=== PATIENT | female | born 2000 | race Caucasian/White ===

== ENCOUNTER → 2021-07-16 | Outpatient (CLI) | payer OTHER ==
--- NOTE | 2021-07-16 14:53 | US ---
EXAMINATION TYPE: Ultrasound OB <= 14 weeks transvaginal DATE OF EXAM: 07/16/2021 2:33 PM COMPARISON: NONE CLINICAL HISTORY: 21-year-old female O26.851 SPOTTING COMPLICATING PREG. Bleeding and cramping x 2 da ys EXAM PERFORMED: Transvaginal (TV) and Transabdominal (TA) FINDINGS: EXAM MEASUREMENTS: GESTATIONAL AGE / DATING Physician Established: Not yet established Dates by LMP: (8 weeks/0 days) EDC: 02/25/2022 Dates by First Scan: No previous this is first scan Dates by Current Scan for: No pole or yolk sac seen MATERNAL ANATOMY Uterus: 8.2 x 4.9 x 5.6cm, retroverted Right Ovary: 2.3 x 1.8 x 2.5cm Left Ovary: 2.4 x 1.6 x 1.6cm Post CDS / Adnexa: free fluid Presence of free fluid: yes Presence of corpus luteal cyst: right ovary: 1.4 x 1.1 x 1.6cm Presence of subchorionic bleed: no GESTATION / SURVEY MSD: 0.8cm , slightly irregularly shaped. IUP: No pole or yolk sac seen Date of LMP: 05/21/2021 IMPRESSION: Cystic locule centered within the uterus measuring 8 mm. No yolk sac or pole seen. Findings may represent a normal intrauterine gestational sac. As the appearance is slightly irregular, pseudogest ational sac of a nonvisualized ectopic and failed are also differential considera tions at this time. Recommend serial beta-hCG and ultrasound follow-up to ensure the appearance of a normal pole with cardiac activity.
== END | disposition home or self-care (01) ==
LOC: RADUSWWP 14:01
PROVIDERS: ATTEND Obstetrics & Gynecology
DX: O26.851 Spotting complicating pregnancy, first trimester (principal); Z3A.08 8 weeks gestation of pregnancy
CPT/HCPCS: 76801; 76817

== ENCOUNTER 2022-02-25 18:53 | Emergency (ER) | payer OTHER ==
[2022-02-25] MEDS ORDERED: SODIUM CHLORIDE 0.9% 1,000 ML IV SCH (19:30)
[2022-02-25] MEDS: SODIUM CHLORIDE 0.9% 500 ML 500 ML IV SCH ×2 (19:46→20:57)
[2022-02-25] MEDS ORDERED: ACETAMINOPHEN TAB 325 MG TAB PO STA (19:55)
[2022-02-25] MEDS ORDERED: SODIUM CHLORIDE 0.9% 500 ML 500 ML IV STA (19:56)
--- NOTE | 2022-02-25 20:03 | ED ---
General Adult HPI - General Chief complaint: Shortness of Breath Stated complaint: SOB, Tingling Time Seen by Provider: 02/25/22 19:04 Source: patient Mode of arrival: ambulatory Limitations: no limitations - History of Present Illness Initial comments: This patient is 21-year-old woman here to have evaluation for feeling flushed and having some tachycardia. The patient states she does have history of Graves' disease and is taking PTU. Patient states the last time that she felt like this she had evaluation and was told that she was septic and therefore she presents to ensure that she is not septic again. The patient has not noted any symptoms of infection preceding the other symptoms. No congestion, sinus pressure, sore throat, cough. No abdominal pain, nausea or vomiting. No change in urination or bowel movements. No fevers, chills or rash. -: hour(s) Severity scale (1-10): 0 Consistency: now resolved Improves with: none Worsens with: none Associated Symptoms: denies other symptoms Treatments Prior to Arrival: none - Related Data Home Medications Medication Instructions Recorded Confirmed propylthiouraciL [Propylthiouracil] 100 mg PO TID 02/25/22 02/25/22 Allergies Allergy/AdvReac Type Severity Reaction Status Date / Time diazepam [From Valium] Allergy Unknown Verified 02/25/22 22:37 ketorolac [From Toradol] Allergy Anaphylaxis Verified 02/25/22 22:37 Review of Systems ROS Statement: Those systems with pertinent positive or pertinent negative responses have been documented in the HPI. ROS Other: All systems not noted in ROS Statement are negative. Constitutional: Denies: fever, chills, weakness Respiratory: Denies: cough, dyspnea Cardiovascular: Reports: palpitations. Denies: chest pain, orthopnea, edema, syncope Gastrointestinal: Denies: abdominal pain, vomiting, diarrhea Genitourinary: Denies: dysuria, hematuria, discharge Musculoskeletal: Denies: back pain Skin: Denies: rash Neurological: Denies: headache, weakness Past Medical History Past Medical History: Thyroid Disorder Additional Past Medical History / Comment(s): Graves disease History of Any Multi-Drug Resistant Organisms: None Reported Past Surgical History: No Surgical Hx Reported Past Psychological History: Anxiety, Bipolar, Depression Smoking Status: Current some day smoker Past Alcohol Use History: Occasional Past Drug Use History: Marijuana General Exam Limitations: no limitations General appearance: alert, in no apparent distress Head exam: Present: atraumatic, normocephalic Eye exam: Present: normal appearance. Absent: scleral icterus, conjunctival injection ENT exam: Present: normal oropharynx Neck exam: Present: normal inspection, full ROM. Absent: meningismus Respiratory exam: Present: normal lung sounds bilaterally. Absent: respiratory distress, wheezes, rales, rhonchi, stridor Cardiovascular Exam: Present: normal rhythm, tachycardia, normal heart sounds. Absent: systolic murmur, diastolic murmur, rubs, gallop GI/Abdominal exam: Present: soft. Absent: distended, tenderness, guarding, rebound, rigid, mass Extremities exam: Present: normal inspection, normal capillary refill. Absent: pedal edema, calf tenderness Back exam: Present: normal inspection. Absent: CVA tenderness (R), CVA tende rness (L) Neurological exam: Present: alert Skin exam: Present: warm, dry, intact, normal color. Absent: rash Course Vital Signs 02/25/22 02/25/22 02/25/22 18:57 19:48 19:50 Temperature 98.0 F 101.7 F H Pulse Rate 123 H 102 H Respiratory 24 20 Rate Blood Pressure 125/53 108/64 O2 Sat by Pulse 98 98 Oximetry 02/25/22 22:32 Temperature 98.7 F Pulse Rate 103 H Respiratory 16 Rate Blood Pressure 103/66 O2 Sat by Pulse 97 Oximetry EKG Findings - EKG Results: EKG: interpreted by ERMD, sinus rhythm, normal axis, normal ST/T EKG shows: tachycardia (Rate 110 bpm) - Blocks, [place], Hypertrophy, ST Abn: AV and intraventricular conduction: right bundle branch block (fixed/intermittent, complete/incomplete) (Incomplete) Medical Decision Making - Medical Decision Making Patient is 21-year-old woman with workup is unremarkable for her hyperthyroidism. The patient is to follow-up with endocrinology. She states she is feeling much better now most of the symptoms have passed. Discussed appropriate further care and follow-up as well as return parameters. - Lab Data Result diagrams: 02/25/22 19:40 02/25/22 19:40 Lab Results 02/25/22 02/25/22 02/25/22 Range/Units 19:40 19:40 19:40 WBC 5.1 (3.8-10.6) k/uL RBC 4.83 (3.80-5.40) m/uL Hgb 14.8 (11.4-16.0) gm/dL Hct 41.3 (34.0-46.0) % MCV 85.3 (80.0-100.0) fL MCH 30.7 (25.0-35.0) pg MCHC 36.0 (31.0-37.0) g/dL RDW 12.9 (11.5-15.5) % Plt Count 216 (150-450) k/uL MPV 7.7 Neutrophils % 79 % Lymphocytes % 16 % Monocytes % 3 % Eosinophils % 2 % Basophils % 0 % Neutrophils # 4.0 (1.3-7.7) k/uL Lymphocytes # 0.8 L (1.0-4.8) k/uL Monocytes # 0.2 (0-1.0) k/uL Eosinophils # 0.1 (0-0.7) k/uL Basophils # 0.0 (0-0.2) k/uL PT 12.2 H (9.0-12.0) sec INR 1.1 (<1.2) APTT 23.9 (22.0-30.0) sec Sodium 138 (137-145) mmol/L Potassium 3.9 (3.5-5.1) mmol/L Chloride 105 (98-107) mmol/L Carbon Dioxide 24 (22-30) mmol/L Anion Gap 9 mmol/L BUN 12 (7-17) mg/dL Creatinine 0.63 (0.52-1.04) mg/dL Est GFR (CKD-EPI)AfAm >90 (>60 ml/min/1.73 sqM) Est GFR (CKD-EPI)NonAf >90 (>60 ml/min/1.73 sqM) Glucose 103 H (74-99) mg/dL Plasma Lactic Acid Aurelio (0.7-2.0) mmol/L Calcium 8.9 (8.4-10.2) mg/dL Total Bilirubin 0.6 (0.2-1.3) mg/dL AST 34 (14-36) U/L ALT 27 (4-34) U/L Alkaline Phosphatase 94 (38-126) U/L Total Protein 7.3 (6.3-8.2) g/dL Albumin 4.4 (3.5-5.0) g/dL TSH <0.015 L (0.465-4.680) mIU/L Free T4 3.05 H (0.78-2.19) ng/dL Urine Color Urine Appearance (Clear) Urine pH (5.0-8.0) Ur Specific [place] (1.001-1.035) Urine Protein (Negative) Urine Glucose (UA) (Negative) Urine Ketones (Negative) Urine Blood (Negative) Urine Nitrite (Negative) Urine Bilirubin (Negative) Urine Urobilinogen (<2.0) mg/dL Ur Leukocyte Esterase (Negative) Coronavirus (PCR) (Not Detectd) 02/25/22 02/25/22 02/25/22 Range/Units 19:40 21:02 21:02 WBC (3.8-10.6) k/uL RBC (3.80-5.40) m/uL Hgb (11.4-16.0) gm/dL Hct (34.0-46.0) % MCV (80.0-100.0) fL MCH (25.0-35.0) pg MCHC (31.0-37.0) g/dL RDW (11.5-15.5) % Plt Count (150-450) k/uL MPV Neutrophils % % Lymphocytes % % Monocytes % % Eosinophils % % Basophils % % Neutrophils # (1.3-7.7) k/uL Lymphocytes # (1.0-4.8) k/uL Monocytes # (0-1.0) k/uL Eosinophils # (0-0.7) k/uL Basophils # (0-0.2) k/uL PT (9.0-12.0) sec INR (<1.2) APTT (22.0-30.0) sec Sodium (137-145) mmol/L Potassium (3.5-5.1) mmol/L Chloride (98-107) mmol/L Carbon Dioxide (22-30) mmol/L Anion Gap mmol/L BUN (7-17) mg/dL Creatinine (0.52-1.04) mg/dL Est GFR (CKD-EPI)AfAm (>60 ml/min/1.73 sqM) Est GFR (CKD-EPI)NonAf (>60 ml/min/1.73 sqM) Glucose (74-99) mg/dL Plasma Lactic Acid Aurelio 1.0 (0.7-2.0) mmol/L Calcium (8.4-10.2) mg/dL Total Bilirubin (0.2-1.3) mg/dL AST (14-36) U/L ALT (4-34) U/L Alkaline Phosphatase (38-126) U/L Total Protein (6.3-8.2) g/dL Albumin (3.5-5.0) g/dL TSH (0.465-4.680) mIU/L Free T4 (0.78-2.19) ng/dL Urine Color Yellow Urine Appearance Clear (Clear) Urine pH 6.0 (5.0-8.0) Ur Specific [place] 1.018 (1.001-1.035) Urine Protein Negative (Negative) Urine Glucose (UA) Negative (Negative) Urine Ketones Trace H (Negative) Urine Blood Negative (Negative) Urine Nitrite Negative (Negative) Urine Bilirubin Negative (Negative) Urine Urobilinogen <2.0 (<2.0) mg/dL Ur Leukocyte Esterase Negative (Negative) Coronavirus (PCR) Not Detected (Not Detectd) Disposition Clinical Impression: Hyperthyroidism Disposition: HOME SELF-CARE Condition: Good Instructions (If sedation given, give patient instructions): Hyperthyroidism (ED), Graves Disease (ED) Is patient prescribed a controlled substance at d/c from ED?: No Referrals: Evelina Howell DO [REFERRING] - 1-2 days Renee Irizarry MD [STAFF PHYSICIAN] - 1-2 days
[2022-02-25 20:11] LABS: ALT 27 U/L (4-34); AST 34 U/L (14-36); African American GFR (CKD) >90 (>60 ml/min/1.73 sqM); Albumin 4.4 g/dL (3.5-5.0); Alkaline Phosphatase 94 U/L (38-126); Anion Gap 9 mmol/L; Blood Urea Nitrogen 12 mg/dL (7-17); Calcium 8.9 mg/dL (8.4-10.2); Carbon Dioxide 24 mmol/L (22-30); Chloride 105 mmol/L (98-107); Glucose 103 mg/dL (74-99); Non-African American GFR(CKD) >90 (>60 ml/min/1.73 sqM); Potassium 3.9 mmol/L (3.5-5.1); Sodium 138 mmol/L (137-145); Total Bilirubin 0.6 mg/dL (0.2-1.3); Total Protein 7.3 g/dL (6.3-8.2)
[2022-02-25 20:25] LABS: Basophils % (A) 0 %; Eosinophils # (A) 0.1 k/uL (0-0.7); Eosinophils % (A) 2 %; HCT 41.3 % (34.0-46.0); HGB 14.8 gm/dL (11.4-16.0); Lymphocytes # (A) 0.8 k/uL (1.0-4.8); Lymphocytes % (A) 16 %; MCH 30.7 pg (25.0-35.0); MCV 85.3 fL (80.0-100.0); Mean Platelet Volume 7.7; Monocytes # (A) 0.2 k/uL (0-1.0); Monocytes % (A) 3 %; Neutrophils % (A) 79 %; Platelet Count 216 k/uL (150-450); RBC 4.83 m/uL (3.80-5.40); RDW 12.9 % (11.5-15.5); WBC 5.1 k/uL (3.8-10.6)
[2022-02-25 20:35] LABS: INR 1.1 (<1.2); Partial Thromboplastin Time 23.9 sec (22.0-30.0); Prothrombin Time 12.2 sec (9.0-12.0)
[2022-02-25 21:16] LABS: T4, Free (Free Thyroxine) 3.05 ng/dL (0.78-2.19)
[2022-02-25 21:26] LABS: Appearance,Urine Clear (Clear); Bilirubin,Urine Negative (Negative); Blood,Urine Negative (Negative); Color,Urine Yellow; Glucose,Urine (UA) Negative (Negative); Ketones,Urine Trace (Negative); Leukocyte Esterase,Urine Negative (Negative); Nitrite,Urine Negative (Negative); Protein,Urine Negative (Negative); Specific Gravity,Urine 1.018 (1.001-1.035); Urobilinogen,Urine <2.0 mg/dL (<2.0)
--- NOTE | 2022-02-25 21:29 | XR ---
EXAMINATION TYPE: XR chest 2V DATE OF EXAM: 02/25/2022 COMPARISON: NONE HISTORY: Fever TECHNIQUE: 2 views FINDINGS: Heart and mediastinum are normal. Lungs are clear. Diaphragm is normal. Bony thorax appears normal. IMPRESSION: Normal chest.
[2022-02-25 22:34] VITALS: BP 103/66; PULSE 103; RESP 16; TEMP 98.7
== END 2022-02-25 23:21 | disposition home or self-care (01) ==
LOC: EC 18:53
DX: E05.90 Thyrotoxicosis, unspecified without thyrotoxic crisis or storm (principal); F41.9 Anxiety disorder, unspecified; F31.9 Bipolar disorder, unspecified; F17.200 Nicotine dependence, unspecified, uncomplicated; F12.90 Cannabis use, unspecified, uncomplicated; Z88.8 Allergy status to other drugs, medicaments and biological substances; Z88.6 Allergy status to analgesic agent; Z20.822 Contact with and (suspected) exposure to COVID-19
CPT/HCPCS: 36415; 93005; 84439; 80053; 84443; 83605; 85025; 85610; 85730; 81003; 87040; 87635; 71046; 99285; 96365; 96361 ×2; J0696

== ENCOUNTER 2022-02-26 22:09 | Observation (INO) | payer OTHER ==
[2022-02-26] MEDS ORDERED: methylPREDNISolone SOD SUCCI 125 MG/2 ML VIAL IV STA (22:38)
[2022-02-26] MEDS ORDERED: FAMOTIDINE 20 MG/2 ML VIAL IV STA (22:38)
[2022-02-26] MEDS ORDERED: SODIUM CHLORIDE 0.9% 1,000 ML IV STA (22:38)
[2022-02-26] MEDS ORDERED: diphenhydrAMINE 50 MG/ML 1 ML VIAL IVP STA (22:38)
--- NOTE | 2022-02-26 22:41 | ED ---
General Adult HPI - General Chief complaint: Arrhythmia/Palpitations Stated complaint: Rash,High heart rate Time Seen by Provider: 02/26/22 22:26 Source: patient Mode of arrival: ambulatory Limitations: no limitations - History of Present Illness Initial comments: Patient is a 21-year-old female presenting to the emergency room with complaints of sudden onset of tachycardia, rash to her chest along with slight swelling and lesion to her tongue that developed prior to coming into the emergency room after her first dose of PTU earlier today which she recently restarted at the recommendation of ER visit yesterday for her Graves' disease. She has had previous ALLERGIC reactions to Valium and Toradol; her ALLERGIC reaction to Toradol was similar to her current reaction with the exception of her tachycardia. Prior to her first dose of PTU today she had not been taking any medication for her hyperthyroidism in quite some time. She is complaining of palpitations and some anxiety causing some shortness of breath; she denies any typical chest pain abdominal pain, nausea or vomiting. She denies any fevers or chills. Besides her hyperthyroidism/Graves' disease along with bipolar depression endings and anxiety she has no other significant past medical history. - Related Data Previous Rx's Medication Instructions Recorded Propranolol [Inderal] 60 mg PO TID 30 Days #90 tab 03/01/22 methIMAzole [Tapazole] 5 mg PO TID 30 Days #90 tab 03/01/22 Allergies Allergy/AdvReac Type Severity Reaction Status Date / Time diazepam [From Valium] Allergy Unknown Verified 02/27/22 10:26 ketorolac [From Toradol] Allergy Anaphylaxis Verified 02/27/22 10:26 Review of Systems ROS Statement: Those systems with pertinent positive or pertinent negative responses have been documented in the HPI. ROS Other: All systems not noted in ROS Statement are negative. Past Medical History Past Medical History: Thyroid Disorder Additional Past Medical History / Comment(s): Graves disease History of Any Multi-Drug Resistant Organisms: None Reported Past Surgical History: No Surgical Hx Reported Past Psychological History: Anxiety, Bipolar, Depression Smoking Status: Current some day smoker Past Alcohol Use History: Occasional Past Drug Use History: Marijuana - Past Family History Father Family Medical History: Hypertension General Exam Limitations: no limitations General appearance: alert, in no apparent distress, anxious Head exam: Present: atraumatic, normocephalic, normal inspection Eye exam: Present: normal appearance, PERRL, EOMI. Absent: scleral icterus, conjunctival injection, periorbital swelling ENT exam: Present: mucous membranes moist, other (Slight anterior tongue swel ling with irritated lesion to right tip of tongue without vesicular formation. Airway patent.) Neck exam: Present: normal inspection. Absent: tenderness Respiratory exam: Present: normal lung sounds bilaterally. Absent: respiratory distress, wheezes, rales, rhonchi, stridor Cardiovascular Exam: Present: normal rhythm, tachycardia, normal heart sounds. Absent: systolic murmur, diastolic murmur, rubs, gallop, clicks GI/Abdominal exam: Present: soft, normal bowel sounds. Absent: distended, tend erness, guarding, rebound, rigid Extremities exam: Present: normal inspection. Absent: pedal edema, joint swelling Back exam: Present: normal inspection, full ROM Neurological exam: Present: alert, oriented X3, CN II-XII intact Psychiatric exam: Present: anxious Skin exam: Present: rash (Macular rash without papules noted to upper chest wall without spreading to the abdominal wall or neck), urticaria (To chest wall) Course Vital Signs 02/26/22 02/27/22 22:10 00:42 Temperature 98.3 F Pulse Rate 140 H 80 Respiratory 20 16 Rate Blood Pressure 147/91 114/67 O2 Sat by Pulse 97 98 Oximetry Medical Decision Making - Medical Decision Making Patient is 21-year-old female presenting to the emergency room with complaints of tongue swelling or rash to her face flushing tachycardia and chest tightness which all began approximately 1 hour after taking her first dose of PTU in quite some time. Previous to her dose of PTU that she took today she has not had any difficulties with the medication when she has taken it previously and has not previously had any ALLERGIC response to the medication. She does report that this response is similar to her previous ALLERGIC response to Toradol. Will start ALLERGIC reaction protocol with IV fluid bolus along with Benadryl, Pepcid and Solu-Medrol. Will monitor response of tachycardia after IV fluid bolus and treatment for ALLERGIC response. Hypermobility for both ALLERGIC response activity along with hyperthyroidism. Will defer repeat chest x-ray, will obtain EKG, CBC, CMP TSH with reflux along with cortisol level, Coags, troponin and magnesium. EKG shows sinus tachycardia. Continue tachycardia after IV fluid bolus Benadryl Pepcid and Solu-Medrol improved rash and tongue swelling. Will give IV propanolol. Laboratory studies reveal low WBC which was normal on yesterday's labs along with low neutrophils and lymphocytes. Coags show slightly elevated PT and INR. BMP shows mildly elevated liver enzymes slightly elevated glucose level TSH undetectable at less than 0.05 free T4 currently pending along with cortisol level pending. Troponin negative and magnesium normal. Calcium also normal. Concerned regarding recurrence of presentation to the emergency department along with changes in laboratory studies over the last 24 hours will plan for observation admission along with transition from PTU to methimazole. Recommendation of of her children he shouldn't stay discussed with patient she is agreeable to observation stay. Presentation, findings and plan discussed at length with forming yardage control operator physician Dr. Ott for [facility] physicians for observation admission. He is accepting of admission for observation stay. Will place admission orders and start on methimazole in a.m. with moderate hyperthyroid dosing of 15 mg twice a day. Case discussed at length with Dr. Cox. - Lab Data Result diagrams: 02/26/22 22:56 02/26/22 22:56 Lab Results 02/26/22 02/26/22 02/26/22 Range/Units 22:56 22:56 22:56 WBC 1.8 L (3.8-10.6) k/uL RBC 4.62 (3.80-5.40) m/uL Hgb 13.9 (11.4-16.0) gm/dL Hct 38.7 (34.0-46.0) % MCV 83.7 (80.0-100.0) fL MCH 30.1 (25.0-35.0) pg MCHC 35.9 (31.0-37.0) g/dL RDW 12.7 (11.5-15.5) % Plt Count 174 (150-450) k/uL MPV 7.8 Neutrophils % 40 % Lymphocytes % 39 % Monocytes % 7 % Eosinophils % 10 % Basophils % 0 % Neutrophils # 0.7 L (1.3-7.7) k/uL Lymphocytes # 0.7 L (1.0-4.8) k/uL Monocytes # 0.1 (0-1.0) k/uL Eosinophils # 0.2 (0-0.7) k/uL Basophils # 0.0 (0-0.2) k/uL PT 12.3 H (9.0-12.0) sec INR 1.2 H (<1.2) APTT 28.1 (22.0-30.0) sec Sodium 138 (137-145) mmol/L Potassium 3.5 (3.5-5.1) mmol/L Chloride 109 H (98-107) mmol/L Carbon Dioxide 21 L (22-30) mmol/L Anion Gap 8 mmol/L BUN 8 (7-17) mg/dL Creatinine 0.50 L (0.52-1.04) mg/dL Est GFR (CKD-EPI)AfAm >90 (>60 ml/min/1.73 sqM) Est GFR (CKD-EPI)NonAf >90 (>60 ml/min/1.73 sqM) Glucose 141 H (74-99) mg/dL Calcium 9.0 (8.4-10.2) mg/dL Magnesium 1.9 (1.6-2.3) mg/dL Total Bilirubin 0.8 (0.2-1.3) mg/dL AST 48 H (14-36) U/L ALT 40 H (4-34) U/L Alkaline Phosphatase 95 (38-126) U/L Troponin I (0.000-0.034) ng/mL Total Protein 6.9 (6.3-8.2) g/dL Albumin 3.9 (3.5-5.0) g/dL TSH <0.015 L (0.465-4.680) mIU/L Cortisol 26 ug/dL 02/26/22 Range/Units 22:56 WBC (3.8-10.6) k/uL RBC (3.80-5.40) m/uL Hgb (11.4-16.0) gm/dL Hct (34.0-46.0) % MCV (80.0-100.0) fL MCH (25.0-35.0) pg MCHC (31.0-37.0) g/dL RDW (11.5-15.5) % Plt Count (150-450) k/uL MPV Neutrophils % % Lymphocytes % % Monocytes % % Eosinophils % % Basophils % % Neutrophils # (1.3-7.7) k/uL Lymphocytes # (1.0-4.8) k/uL Monocytes # (0-1.0) k/uL Eosinophils # (0-0.7) k/uL Basophils # (0-0.2) k/uL PT (9.0-12.0) sec INR (<1.2) APTT (22.0-30.0) sec Sodium (137-145) mmol/L Potassium (3.5-5.1) mmol/L Chloride (98-107) mmol/L Carbon Dioxide (22-30) mmol/L Anion Gap mmol/L BUN (7-17) mg/dL Creatinine (0.52-1.04) mg/dL Est GFR (CKD-EPI)AfAm (>60 ml/min/1.73 sqM) Est GFR (CKD-EPI)NonAf (>60 ml/min/1.73 sqM) Glucose (74-99) mg/dL Calcium (8.4-10.2) mg/dL Magnesium (1.6-2.3) mg/dL Total Bilirubin (0.2-1.3) mg/dL AST (14-36) U/L ALT (4-34) U/L Alkaline Phosphatase (38-126) U/L Troponin I <0.012 (0.000-0.034) ng/mL Total Protein (6.3-8.2) g/dL Albumin (3.5-5.0) g/dL TSH (0.465-4.680) mIU/L Cortisol ug/dL - EKG Data EKG Comments: EKG completed at 2221 interpreted by me shows sinus tachycardia with incomplete right bundle branch block ventricular rate 132 bpm, WV interval 140 ms, QRS duration 100 ms, QT/QTC 3 460 ms, PRT axes 62, 88, 50 Disposition Clinical Impression: Hyperthyroidism, Tachycardia Disposition: ADMITTED IP TO THIS HOSP Condition: Stable Is patient prescribed a controlled substance at d/c from ED?: No Time of Disposition: 23:59
[2022-02-26] MEDS ORDERED: ONDANSETRON 4 MG/2 ML VIAL IVP STA (23:22)
[2022-02-26 23:32] LABS: Basophils % (A) 0 %; Eosinophils # (A) 0.2 k/uL (0-0.7); Eosinophils % (A) 10 %; HCT 38.7 % (34.0-46.0); HGB 13.9 gm/dL (11.4-16.0); Lymphocytes # (A) 0.7 k/uL (1.0-4.8); Lymphocytes % (A) 39 %; MCH 30.1 pg (25.0-35.0); MCHC 35.9 g/dL (31.0-37.0); MCV 83.7 fL (80.0-100.0); Mean Platelet Volume 7.8; Monocytes # (A) 0.1 k/uL (0-1.0); Monocytes % (A) 7 %; Neutrophils # (A) 0.7 k/uL (1.3-7.7); Neutrophils % (A) 40 %; Platelet Count 174 k/uL (150-450); RBC 4.62 m/uL (3.80-5.40); RDW 12.7 % (11.5-15.5); WBC 1.8 k/uL (3.8-10.6)
[2022-02-26 23:44] LABS: INR 1.2 (<1.2); Partial Thromboplastin Time 28.1 sec (22.0-30.0); Prothrombin Time 12.3 sec (9.0-12.0)
[2022-02-26] MEDS ORDERED: PROPRANOLOL 1 MG/ML 1 ML VIAL IV STA (23:45)
[2022-02-27] MEDS ORDERED: ACETAMINOPHEN TAB 325 MG TAB PO PRN (00:25)
[2022-02-27] MEDS ORDERED: NALOXONE 0.4 MG/ML 1 ML VIAL IV PRN (00:25)
[2022-02-27] MEDS ORDERED: SODIUM CHLORIDE 0.9% 1,000 ML IV SCH (00:30)
[2022-02-27 01:00] LABS: ALT 40 U/L (4-34); AST 48 U/L (14-36); African American GFR (CKD) >90 (>60 ml/min/1.73 sqM); Albumin 3.9 g/dL (3.5-5.0); Alkaline Phosphatase 95 U/L (38-126); Anion Gap 8 mmol/L; Blood Urea Nitrogen 8 mg/dL (7-17); Carbon Dioxide 21 mmol/L (22-30); Chloride 109 mmol/L (98-107); Glucose 141 mg/dL (74-99); Magnesium 1.9 mg/dL (1.6-2.3); Non-African American GFR(CKD) >90 (>60 ml/min/1.73 sqM); Potassium 3.5 mmol/L (3.5-5.1); Sodium 138 mmol/L (137-145); Total Bilirubin 0.8 mg/dL (0.2-1.3); Total Protein 6.9 g/dL (6.3-8.2)
[2022-02-27 01:27] LABS: T4, Free (Free Thyroxine) 2.73 ng/dL (0.78-2.19)
--- NOTE | 2022-02-27 02:50 | P.HPIM ---
History of Present Illness H&P Date: 02/27/22 The patient is a 21-year-old female with a PMH of Graves' disease with poor follow-up who presents to the emergency room with complaints of palpitations. Patient states that she was diagnosed with Graves' disease several years ago and was previously on propylthiouracil for 2 years and was lost to follow for the last one year due to personal reasons. She had not been taking any thyroid blockers. She was ultimately seen at her PCP several days ago who prescribed her propylthiouracil, the first dose of which she took on 02/25 morning. Shortly after taking the first dose, the patient developed tachycardia and flushing and was subsequently seen at the emergency room. The patient was advised to continue taking her propylthiouracil by the ED provider and was also started on methimazole and was discharged home. The patient states that she has not yet filled the prescription of the methimazole and continued taking the PTU. States that after taking her dose this evening at around 7 PM, she developed sudden onset of chest tightness, shortness of breath with palpitations and flu shing. She also reports that soon after arrival at the emergency room, she also developed tongue swelling which resolved within a few minutes after she was given Benadryl. She reports feeling significantly better at the time of interview and stated that she feels back at her baseline. EKG in the emergency room revealed sinus tachycardia with incomplete right bundle branch block at 1 32 bpm. At time of interview however, the patient was resting comfortably with pulse 70 days on the monitor. Laboratory evaluation was remarkable for leukopenia of 1.8, AST 48, and ALT 40. Review of systems: Pertinent positives and negatives as discussed in HPI, a complete review of systems was performed and all other systems are negative. Physical examination: General: non toxic, no distress, appears at stated age, normal weight Derm: no unusual rashes/lesions, warm Head: atraumatic, normocephalic, symmetric Eyes: EOMI, no lid lag, anicteric sclera, pupils equal round reactive to light ENT: Nose and ears atraumatic Neck: No cervical lymphadenopathy, trachea midline, supple Mouth: no lip lesion, mucus membranes moist Cardiovascular: S1S2 reg, no murmur, positive dorsalis pedis pulse bilateral, no edema Lungs: CTA bilateral, no rhonchi, no rales, no accessory muscle use Abdominal: soft, nontender to palpation, no guarding Ext: muscle strength 5 out of 5 in all 4 extremities grossly, no gross muscle atrophy, no contractures, Neuro: CN II-XI grossly intact, no gross focal neuro deficits Psych: Alert, oriented, appropriate affect Assessment/plan Shortness of breath, palpitations and tongue swelling, suspect possible propylthiouracil ALLERGY with history of Graves' disease -Low suspisioun of thyroid storm at this time as patient's symptoms completely resolved without administration of any thionamides -Continue methimazole at this time -Patient will need close endocrine follow-up after discharge -Continue propranolol when necessary Leukopenia -Unclear etiology -Monitor for now DVT prophylaxis -Heparin subcu The patient is admitted with an anticipated less than 2 midnight stay for evaluation of graves disease CODE STATUS: Full Code Discussed with: Patient Anticipated discharge date: in am Anticipated discharge place: Home Past Medical History Past Medical History: Thyroid Disorder Additional Past Medical History / Comment(s): Graves disease History of Any Multi-Drug Resistant Organisms: None Reported Past Surgical History: No Surgical Hx Reported Past Psychological History: Anxiety, Bipolar, Depression Smoking Status: Current some day smoker Past Alcohol Use History: Occasional Past Drug Use History: Marijuana - Past Family History Father Family Medical History: Hypertension Medications and Allergies Home Medications Medication Instructions Recorded Confirmed Type propylthiouraciL [Propylthiouracil] 100 mg PO TID 02/25/22 02/25/22 History methIMAzole [Tapazole] 15 mg PO BID 7 Days #14 tablet 02/27/22 Rx Allergies Allergy/AdvReac Type Severity Reaction Status Date / Time diazepam [From Valium] Allergy Unknown Verified 02/26/22 22:13 ketorolac [From Toradol] Allergy Anaphylaxis Verified 02/26/22 22:13 Physical Exam Vitals: Vital Signs Temp Pulse Resp BP Pulse Ox 02/27/22 00:42 80 16 114/67 98 02/26/22 22:10 98.3 F 140 H 20 147/91 97 Intake and Output 02/26/22 02/26/22 02/27/22 14:59 22:59 06:59 Other: Weight 56.699 kg Results CBC & Chem 7: 02/26/22 22:56 02/26/22 22:56 Labs: Abnormal Lab Results - Last 24 Hours (Table) 02/26/22 02/26/22 02/26/22 Range/Units 22:56 22:56 22:56 WBC 1.8 L (3.8-10.6) k/uL Neutrophils # 0.7 L (1.3-7.7) k/uL Lymphocytes # 0.7 L (1.0-4.8) k/uL PT 12.3 H (9.0-12.0) sec INR 1.2 H (<1.2) Chloride 109 H (98-107) mmol/L Carbon Dioxide 21 L (22-30) mmol/L Creatinine 0.50 L (0.52-1.04) mg/dL Glucose 141 H (74-99) mg/dL AST 48 H (14-36) U/L ALT 40 H (4-34) U/L TSH <0.015 L (0.465-4.680) mIU/L Free T4 (0.78-2.19) ng/dL Free T3 pg/mL (2.8-5.3) pg/ml 02/27/22 Range/Units 00:41 WBC (3.8-10.6) k/uL Neutrophils # (1.3-7.7) k/uL Lymphocytes # (1.0-4.8) k/uL PT (9.0-12.0) sec INR (<1.2) Chloride (98-107) mmol/L Carbon Dioxide (22-30) mmol/L Creatinine (0.52-1.04) mg/dL Glucose (74-99) mg/dL AST (14-36) U/L ALT (4-34) U/L TSH (0.465-4.680) mIU/L Free T4 2.73 H (0.78-2.19) ng/dL Free T3 pg/mL 6.2 H (2.8-5.3) pg/ml
[2022-02-27] MEDS ORDERED: HEPARIN SODIUM,PORCINE/PF 5,000 UNIT/0.5 ML SYRINGE SQ SCH (08:00)
[2022-02-27 08:41] VITALS: BP 109/64; PULSE 65; RESP 16; TEMP 97.8
[2022-02-27] MEDS ORDERED: methIMAzole 5 MG TAB PO SCH (09:00)
--- NOTE | 2022-02-27 13:59 | P.DS ---
Providers Date of admission: 02/27/22 00:26 Expected date of discharge: 02/27/22 Attending physician: Tammy Ott MD Primary care physician: Evelina Howell [facility] Course: Discharge Diagnosis: Graves' disease Hyperthyroidism Suspected ALLERGIC reaction to PTU Leukopenia Hospital Course: 21-year-old female with a PMH of Graves' disease with poor follow-up who presents to the emergency room with complaints of palpitations. Patient states that she was diagnosed with Graves' disease several years ago and was previously on propylthiouracil for 2 years and was lost to follow for the last one year due to personal reasons. She had not been taking any thyroid blockers. She was ultimately seen at her PCP several days ago who prescribed her propylthiouracil, the first dose of which she took on 02/25 morning. Shortly after taking the first dose, the patient developed tachycardia and flushing and was subsequently seen at the emergency room. The patient was advised to continue taking her propylthiouracil by the ED provider and was also started on methimazole and was discharged home. The patient states that she has not yet filled the prescription of the methimazole and continued taking the PTU. States that after taking her dose this evening at around 7 PM, she developed sudden onset of chest tightness, shortness of breath with palpitations and flushing. She also reports that soon after arrival at the emergency room, she also developed tongue swelling which resolved within a few minutes after she was given Benadryl. EKG in the emergency room revealed sinus tachycardia with incomplete right bundle branch block at 1 32 bpm. Laboratory evaluation was remarkable for leukopenia of 1.8, AST 48, and ALT 40. Vital signs now Stable. Patient denies any further symptoms at the time of discharge. Patient to continue taking her methimazole at home. She has further follow-up with PCP, possible endocrinology. She may need radioablation or thyroid surgery in the future. Patient seen and examined at bedside. Vital signs reviewed and stable. General: nontoxic, no distress, appears at stated age Derm: warm, dry Head: atraumatic, normocephalic, symmetric Eyes: EOMI, no lid lag, anicteric sclera Mouth: no lip lesion, mucus membranes moist Cardiovascular: S1S2 reg, no murmur Lungs: CTA bilateral, no rhonchi, no rales , no accessory muscle use Abdominal: soft, nontender to palpation, no guarding, no appreciable organomegaly Ext: no gross muscle atrophy, no edema, no contractures Neuro: CN II-XI grossly intact, no focal neuro deficits Psych: Alert, oriented, appropriate affect A total of 38 minutes of time were spent preparing this complex discharge summary. Patient was discharged on 02/27/22 at 10:35. Patient Condition at Discharge: Stable Plan - Discharge Summary New Discharge Prescriptions: New methIMAzole [Tapazole] 15 mg PO BID 7 Days #14 tablet Discharge Medication List methIMAzole [Tapazole] 15 mg PO BID 7 Days #14 tablet 02/27/22 [Rx] Follow up Appointment(s)/Referral(s): Evelina Howell DO [Primary Care Provider] - 1-2 days Patient Instructions/Handouts: Heart Palpitations (ED), Hyperthyroidism (ED) Activity/Diet/Wound Care/Special Instructions: Please take your methimazole as prescribed and stop PTU at this time as there is concern for ALLERGIC reaction. Please follow-up with your primary care provider and if established your parking line painter. Please return to the Emergency Departme nt if symptoms worsen or any other concerns. If medications do not work for you, you may need radioablation or surgery in the future. Discharge Disposition: HOME SELF-CARE
== END 2022-02-27 11:00 | disposition home or self-care (01) ==
LOC: EC 22:09 → 6NMEDSUR 02-27 00:26
PROVIDERS: ADMIT Internal Medicine; ATTEND Internal Medicine
DX: E05.00 Thyrotoxicosis with diffuse goiter without thyrotoxic crisis or storm (principal); D72.819 Decreased white blood cell count, unspecified; I45.10 Unspecified right bundle-branch block; R79.1 Abnormal coagulation profile; R74.8 Abnormal levels of other serum enzymes; F31.9 Bipolar disorder, unspecified; F41.9 Anxiety disorder, unspecified; F17.200 Nicotine dependence, unspecified, uncomplicated; Z79.899 Other long term (current) drug therapy; Z88.8 Allergy status to other drugs, medicaments and biological substances; Z82.49 Family history of ischemic heart disease and other diseases of the circulatory system
CPT/HCPCS: 96374; 96375 ×2; 99285; 36415; 93005 ×2; 84439; 84481; 80053; 84443; 82533; 83735; 84484; 85025; 85610; 85730; G0378; J1200; J1800; J2930; J2405

== ENCOUNTER 2022-02-27 13:21 | Observation (INO) | payer OTHER ==
[2022-02-27] MEDS ORDERED: SODIUM CHLORIDE 0.9% 1,000 ML IV STA (13:37)
[2022-02-27] MEDS ORDERED: ONDANSETRON 4 MG/2 ML VIAL IVP STA (13:37)
[2022-02-27] MEDS ORDERED: MORPHINE SULFATE 2 MG/ML SYRINGE IVP STA ×2 (13:37→15:57)
--- NOTE | 2022-02-27 14:03 | ED ---
Recheck HPI - General Chief Complaint: Recheck/Abnormal Lab/Rx Stated Complaint: SOB Time Seen by Provider: 02/27/22 13:24 Source: patient, RN notes reviewed Mode of arrival: EMS Limitations: no limitations - History of Present Illness Initial Comments: This is a 21-year-old female with a past medical history of Graves disease who presents to the emergency department for nausea, vomiting, and hand cramping. She was discharged earlier today for problems with the hands related to Graves disease. She had not followed up for treatment of the Graves disease in many years, and was started on PTU on 02/25 when she saw her PCP. Shortly after taking it she became tachycardic with flushing. She had been instructed to begin methimazole and to take this with the PTU. After an additional dose of PTU, she acquired tongue swelling and chest tightness. There was concern that she may have been having an allergic reaction to the PTU, and she was instructed to discontinue this and take the methimazole on its own. States that since then she has felt very nauseous and has thrown up. Also reports lower abdominal pain and pressure. Her hands continue to feel very cramped, numb, and tingly. Also states that she is in significant pain from this. Denies any fevers, chills, sore throat, cough, dyspnea, chest pain, palpitations, diarrhea, back pain, or headaches. - Related Data Previous Rx's Medication Instructions Recorded methIMAzole [Tapazole] 15 mg PO BID 7 Days #14 tablet 02/27/22 Allergies Allergy/AdvReac Type Severity Reaction Status Date / Time diazepam [From Valium] Allergy Unknown Verified 02/27/22 10:26 ketorolac [From Toradol] Allergy Anaphylaxis Verified 02/27/22 10:26 Review of Systems ROS Statement: Those systems with pertinent positive or pertinent negative responses have been documented in the HPI. ROS Other: All systems not noted in ROS Statement are negative. Past Medical History Past Medical History: Thyroid Disorder Additional Past Medical History / Comment(s): Graves disease History of Any Multi-Drug Resistant Organisms: None Reported Past Surgical History: No Surgical Hx Reported Past Psychological History: Anxiety, Bipolar, Depression Smoking Status: Current some day smoker Past Alcohol Use History: Occasional Past Drug Use History: Marijuana - Past Family History Father Family Medical History: Hypertension General Exam Limitations: no limitations General appearance: alert, in no apparent distress Head exam: Present: atraumatic, normocephalic, normal inspection Respiratory exam: Present: normal lung sounds bilaterally. Absent: respiratory distress, wheezes, rales, rhonchi, stridor Cardiovascular Exam: Present: regular rate, normal rhythm, normal heart sounds. Absent: systolic murmur, diastolic murmur, rubs, gallop, clicks GI/Abdominal exam: Present: soft, tenderness (Lower abdominal), normal bowel sounds. Absent: distended Extremities exam: Present: other (Hands are stiff and cramping bilaterally, worse on the left) Neurological exam: Present: alert, oriented X3, CN II-XII intact Psychiatric exam: Present: normal affect, normal mood Skin exam: Present: warm, dry, intact, normal color. Absent: rash Course Vital Signs 02/27/22 02/27/22 02/27/22 13:28 15:14 16:00 Temperature 97.8 F 97.9 F Pulse Rate 79 80 77 Respiratory 16 16 20 Rate Blood Pressure 119/75 119/74 137/69 O2 Sat by Pulse 99 99 98 Oximetry 02/27/22 17:00 Temperature Pulse Rate 77 Respiratory 16 Rate Blood Pressure 136/70 O2 Sat by Pulse 98 Oximetry Medical Decision Making - Medical Decision Making This is a 21-year-old female who presents to the emergency department for abdominal pain, nausea, and hand cramping. Lab work obtained, TSH is unchanged, however free T3 and T4 are elevated compared to prior. She was given IV fluids, Zofran, and morphine for her symptoms, which she states was effective. The cramping and spasms in her hand did also start to improve. Given the notable abdominal pain, computed tomography scan of the abdomen and pelvis was obtained. I did not identify any signs of free air, bowel wall thickening, or dilation of the appendix. The radiologist did make note of free fluid in the pelvis which may be physiologic. Findings discussed with the patient, who states that she has a history of ovarian cysts and would like to proceed with a pelvic ultrasound. Transvaginal ultrasound was subsequently obtained. Transvaginal ultrasound also revealed mild physiologic free fluid in the pelvis and no other acute pathologies to account for her symptoms. Case discussed with ED attending, who advised that her thyroid is not optimally managed, and given that her symptoms continue to recur and persist, it would best to have her placed in observation for medication adjustments. Discussion took place with myself, the patient, admitting provider Dr. Bryant, and ED attending Dr. Saucedo. We advised the patient that the medicine team here can handle the medication regimen and will have endocrinology on-call for consultation as needed. We did also look into the office hours of Dr. Irizarry, the local barrel bridge assembler, who is supposed to be available tomorrow. The patient is comfortable remaining here for management of symptoms and hyperthyroidism with endocrinology available as a consult. Patient will be admitted to medicine for further management. This case was discussed in detail with the attending ED physician. Presentation, findings, and treatment plan discussed in detail as well. - Lab Data Result diagrams: 02/27/22 13:37 02/27/22 13:37 Lab Results 02/27/22 02/27/22 02/27/22 Range/Units 13:37 13:37 13:37 WBC 4.7 (3.8-10.6) k/uL RBC 4.87 (3.80-5.40) m/uL Hgb 14.4 (11.4-16.0) gm/dL Hct 41.4 (34.0-46.0) % MCV 85.2 (80.0-100.0) fL MCH 29.7 (25.0-35.0) pg MCHC 34.9 (31.0-37.0) g/dL RDW 12.8 (11.5-15.5) % Plt Count 211 (150-450) k/uL MPV 8.0 Neutrophils % 79 % Lymphocytes % 14 % Monocytes % 5 % Eosinophils % 0 % Basophils % 0 % Neutrophils # 3.7 (1.3-7.7) k/uL Lymphocytes # 0.7 L (1.0-4.8) k/uL Monocytes # 0.2 (0-1.0) k/uL Eosinophils # 0.0 (0-0.7) k/uL Basophils # 0.0 (0-0.2) k/uL Sodium (137-145) mmol/L Potassium (3.5-5.1) mmol/L Chloride (98-107) mmol/L Carbon Dioxide (22-30) mmol/L Anion Gap mmol/L BUN (7-17) mg/dL Creatinine (0.52-1.04) mg/dL Est GFR (CKD-EPI)AfAm (>60 ml/min/1.73 sqM) Est GFR (CKD-EPI)NonAf (>60 ml/min/1.73 sqM) Glucose (74-99) mg/dL Calcium (8.4-10.2) mg/dL Magnesium (1.6-2.3) mg/dL Total Bilirubin (0.2-1.3) mg/dL AST (14-36) U/L ALT (4-34) U/L Alkaline Phosphatase (38-126) U/L Total Protein (6.3-8.2) g/dL Albumin (3.5-5.0) g/dL Amylase (30-110) U/L Lipase (23-300) U/L TSH (0.465-4.680) mIU/L Free T4 (0.78-2.19) ng/dL Free T3 pg/mL (2.8-5.3) pg/ml Urine Color Colorless Urine Appearance Clear (Clear) Urine pH 6.5 (5.0-8.0) Ur Specific Melbeta 1.003 (1.001-1.035) Urine Protein Negative (Negative) Urine Glucose (UA) Negative (Negative) Urine Ketones 1+ H (Negative) Urine Blood Negative (Negative) Urine Nitrite Negative (Negative) Urine Bilirubin Negative (Negative) Urine Urobilinogen <2.0 (<2.0) mg/dL Ur Leukocyte Esterase Negative (Negative) Urine HCG, Qual Not Detected (Not Detectd) 02/27/22 02/27/22 Range/Units 13:37 13:37 WBC (3.8-10.6) k/uL RBC (3.80-5.40) m/uL Hgb (11.4-16.0) gm/dL Hct (34.0-46.0) % MCV (80.0-100.0) fL MCH (25.0-35.0) pg MCHC (31.0-37.0) g/dL RDW (11.5-15.5) % Plt Count (150-450) k/uL MPV Neutrophils % % Lymphocytes % % Monocytes % % Eosinophils % % Basophils % % Neutrophils # (1.3-7.7) k/uL Lymphocytes # (1.0-4.8) k/uL Monocytes # (0-1.0) k/uL Eosinophils # (0-0.7) k/uL Basophils # (0-0.2) k/uL Sodium 142 (137-145) mmol/L Potassium 4.3 (3.5-5.1) mmol/L Chloride 111 H (98-107) mmol/L Carbon Dioxide 22 (22-30) mmol/L Anion Gap 9 mmol/L BUN 9 (7-17) mg/dL Creatinine 0.52 (0.52-1.04) mg/dL Est GFR (CKD-EPI)AfAm >90 (>60 ml/min/1.73 sqM) Est GFR (CKD-EPI)NonAf >90 (>60 ml/min/1.73 sqM) Glucose 114 H (74-99) mg/dL Calcium 9.7 (8.4-10.2) mg/dL Magnesium 1.9 (1.6-2.3) mg/dL Total Bilirubin 0.6 (0.2-1.3) mg/dL AST 32 (14-36) U/L ALT 39 H (4-34) U/L Alkaline Phosphatase 93 (38-126) U/L Total Protein 7.4 (6.3-8.2) g/dL Albumin 4.3 (3.5-5.0) g/dL Amylase 34 (30-110) U/L Lipase 27 (23-300) U/L TSH <0.015 L (0.465-4.680) mIU/L Free T4 3.12 H (0.78-2.19) ng/dL Free T3 pg/mL 9.5 H (2.8-5.3) pg/ml Urine Color Urine Appearance (Clear) Urine pH (5.0-8.0) Ur Specific Melbeta (1.001-1.035) Urine Protein (Negative) Urine Glucose (UA) (Negative) Urine Ketones (Negative) Urine Blood (Negative) Urine Nitrite (Negative) Urine Bilirubin (Negative) Urine Urobilinogen (<2.0) mg/dL Ur Leukocyte Esterase (Negative) Urine HCG, Qual (Not Detectd) - Radiology Data Radiology results: report reviewed, image reviewed Disposition Clinical Impression: Hyperthyroidism, Paresthesia and pain of both upper extremities Disposition: ADMITTED IP TO THIS [facility] Referrals: Evelina Howell DO [Primary Care Provider] - 1-2 days
[2022-02-27 14:19] LABS: Basophils % (A) 0 %; Eosinophils % (A) 0 %; HCT 41.4 % (34.0-46.0); HGB 14.4 gm/dL (11.4-16.0); Lymphocytes # (A) 0.7 k/uL (1.0-4.8); Lymphocytes % (A) 14 %; MCH 29.7 pg (25.0-35.0); MCHC 34.9 g/dL (31.0-37.0); MCV 85.2 fL (80.0-100.0); Monocytes # (A) 0.2 k/uL (0-1.0); Monocytes % (A) 5 %; Neutrophils # (A) 3.7 k/uL (1.3-7.7); Neutrophils % (A) 79 %; Platelet Count 211 k/uL (150-450); RBC 4.87 m/uL (3.80-5.40); RDW 12.8 % (11.5-15.5); WBC 4.7 k/uL (3.8-10.6)
[2022-02-27 14:36] LABS: ALT 39 U/L (4-34); AST 32 U/L (14-36); African American GFR (CKD) >90 (>60 ml/min/1.73 sqM); Albumin 4.3 g/dL (3.5-5.0); Alkaline Phosphatase 93 U/L (38-126); Amylase 34 U/L (30-110); Anion Gap 9 mmol/L; Blood Urea Nitrogen 9 mg/dL (7-17); Calcium 9.7 mg/dL (8.4-10.2); Carbon Dioxide 22 mmol/L (22-30); Chloride 111 mmol/L (98-107); Glucose 114 mg/dL (74-99); Lipase 27 U/L (23-300); Magnesium 1.9 mg/dL (1.6-2.3); Non-African American GFR(CKD) >90 (>60 ml/min/1.73 sqM); Potassium 4.3 mmol/L (3.5-5.1); Sodium 142 mmol/L (137-145); Total Bilirubin 0.6 mg/dL (0.2-1.3); Total Protein 7.4 g/dL (6.3-8.2)
[2022-02-27 14:42] LABS: Appearance,Urine Clear (Clear); Bilirubin,Urine Negative (Negative); Blood,Urine Negative (Negative); Color,Urine Colorless; Glucose,Urine (UA) Negative (Negative); Ketones,Urine 1+ (Negative); Leukocyte Esterase,Urine Negative (Negative); Nitrite,Urine Negative (Negative); PH, Urine 6.5 (5.0-8.0); Protein,Urine Negative (Negative); Specific Gravity,Urine 1.003 (1.001-1.035); Urobilinogen,Urine <2.0 mg/dL (<2.0)
--- NOTE | 2022-02-27 15:19 | CT ---
EXAMINATION TYPE: CT abdomen pelvis w con DATE OF EXAM: 02/27/2022 COMPARISON: None HISTORY: abdominal pain, acute, nonlocalized CT DLP: 600.2 mGycm Automated exposure control for dose reduction was used. CONTRAST: Performed with IV Contrast, patient injected with 100ml mL of Isovue 300. Images obtained from the diaphragm to the floor the pelvis with the IV contrast. Lung bases are clear. No pleural effusion. Heart size is normal. No pericardial effusion. Liver spleen and stomach pancreas gallbladder appear intact. The bile duct are not dilated. There is no adrenal mass. Kidneys of normal size and contour. No hydronephrosis. There is free fluid in the pelvis. Bladder distends smoothly. No inguinal hernia. No evidence of a pelvic mass. Uterus is retroverted. There is no mesenteric edema. No ascites or free air. No sign of a bowel obstruction. Appendix is pos terior and medial and appears normal. The lumbar vertebra have normal alignment. Posterior elements are intact. No compression fracture. Jim ny pelvis is intact. The hip joints are intact. IMPRESSION: There is low-density free fluid in the pelvis that could be physiologic. Normal appendix.
--- NOTE | 2022-02-27 17:05 | US ---
EXAMINATION TYPE: US transvaginal DATE OF EXAM: 02/27/2022 COMPARISON: CLINICAL HISTORY: Pelvic pain. Right side pain. CT showed free fluid. HX PCOS and endometriosis per patient. EC patient TECHNIQUE: Transvaginal (TV). Date of LMP: 02/05/2022, EXAM MEASUREMENTS: Uterus: 7.5 x 4.3 x 3.8 cm Endometrial Stripe: 0.3 cm Right Ovary: 3.9 x 2.9 x 2.3 cm Left Ovary: 3.3 x 1.9 x 1.9 cm 1. Uterus: Slightly retroverted wnl 2. Endometrium: wnl 3. Right Ovary: multiple follicles seen 4. Left Ovary: multiple follicles seen Spectral, color and waveform doppler imaging shows good arterial and venous flow within the ovaries ; there is no evidence for ovarian torsion. 5. Bilateral Adnexa: Free fluid adjacent to ovaries 6. Anterior and Posterior cul-de-sac: Free fluid seen IMPRESSION: Mild free fluid in the cul-de-sac. No solid adnexal mass. No evidence of ovarian torsion. Normal uter us.
[2022-02-27] MEDS ORDERED: MORPHINE SULFATE 4 MG/ML SYRINGE IV PRN (18:26)
[2022-02-27] MEDS ORDERED: ONDANSETRON 4 MG/2 ML VIAL IVP PRN (18:26)
[2022-02-27] MEDS ORDERED: HYDROcodone/APAP 5-325MG 1 EACH TAB PO PRN (18:26)
[2022-02-27] MEDS ORDERED: NALOXONE 0.4 MG/ML 1 ML VIAL IV PRN ×2 (18:26→18:44)
[2022-02-27] MEDS ORDERED: ACETAMINOPHEN TAB 325 MG TAB PO PRN (18:26)
[2022-02-27] MEDS ORDERED: traMADol 50 MG TAB PO PRN (18:44)
[2022-02-27] MEDS ORDERED: PROPRANOLOL 40 MG TAB PO STA (18:48)
[2022-02-27] MEDS: PROPRANOLOL 20 MG TAB PO SCH (20:39)
[2022-02-27] MEDS: SODIUM CHLORIDE 0.9% 1,000 ML IV SCH (23:03)
[2022-02-28] MEDS ORDERED: ALPRAZolam 0.25 MG TAB PO ONE (00:30)
[2022-02-28] MEDS ORDERED: LORazepam 2 MG/ML INJ IV STA (02:20)
--- NOTE | 2022-02-28 07:42 | P.HPIM ---
History of Present Illness H&P Date: 02/27/22 Chief Complaint: flushing 21-year-old female with a PMH of Graves' disease with poor follow-up who presents to the emergency room with recurrent symptoms of flushing, palpita tions, nausea and vomiting, bilateral hands cramps and tingling, diarrhea, fevers. She was recently started on propylthiouracil by her PCP last Thursday after which she started having these symptoms. She has lost follow up over the past 2 years due to personal reasons, used to be on therapy for hyperthyroidism prior to that. Shortly after taking the first dose, the patient developed tachycardia and flushing and was subsequently seen at the emergency room. She was admitted to observation, stablizied and sent home. She came back today for worsening symptoms of anxiety, palpitations, chest tightness and sob, fevers, tremors, nausea, vomiting and diarrhea, flushing and cramps in the hands. Had 6 BMs this am, not diarrhea according to her. Review of Systems Complete review of system performed, pertinent positives per HPI, otherwise negative Past Medical History Past Medical History: Thyroid Disorder Additional Past Medical History / Comment(s): Graves disease History of Any Multi-Drug Resistant Organisms: None Reported Past Surgical History: No Surgical Hx Reported Past Psychological History: Anxiety, Bipolar, Depression Smoking Status: Current some day smoker Past Alcohol Use History: Occasional Past Drug Use History: Marijuana - Past Family History Father Family Medical History: Hypertension Medications and Allergies Home Medications Medication Instructions Recorded Confirmed Type methIMAzole [Tapazole] 15 mg PO BID 7 Days #14 tablet 02/27/22 02/27/22 Rx Allergies Allergy/AdvReac Type Severity Reaction Status Date / Time diazepam [From Valium] Allergy Unknown Verified 02/27/22 10:26 ketorolac [From Toradol] Allergy Anaphylaxis Verified 02/27/22 10:26 Physical Exam Vitals: Vital Signs Temp Pulse Resp BP Pulse Ox 02/27/22 17:00 77 16 136/70 98 02/27/22 16:00 97.9 F 77 20 137/69 98 02/27/22 15:14 80 16 119/74 99 02/27/22 13:28 97.8 F 79 16 119/75 99 Intake and Output 02/27/22 02/27/22 02/27/22 06:59 14:59 22:59 Other: Weight 56.699 kg Constitutional: No acute distress, conversant, pleasant Eyes:Anicteric sclerae, moist conjunctiva, no lid-lag, PERRLA, ENMT: Oropharynx clear, no erythema, exudates Neck: Supple, FROM, no masses, or JVD, No carotid bruits, No thyromegaly Lungs: Clear to auscultation, Clear to percussion, Normal respiratory effort, no accessory muscle use Cardiovascular: Heart regular in rate and rhythm, No murmurs, gallops, or rubs, No peripheral edema Abdominal: Soft, Nontender, no guarding, rebound or rigidity, Normoactive bowel sounds, No hepatomegaly, No splenomegaly, No palpable mass Skin: Normal temperature, tone, texture, turgor, no induration, No subcutaneous nodules, No rash, lesions, No ulcers Extremities: No digital cyanosis, No clubbing, Pedal pulses intact and symmetrical, Radial pulses intact and symmetrical, No calf tenderness Psychiatric: Alert and oriented to person, place and time, appropriate affect, intact judgement Neuro: Muscles Strength 5/5 in all 4 extremities, Sensation to light touch gr ossly present throughout, Cranial nerves II-XII grossly intact, no focal sensory deficits Results CBC & Chem 7: 02/27/22 13:37 02/27/22 13:37 Labs: Abnormal Lab Results - Last 24 Hours (Table) 02/27/22 02/27/22 02/27/22 Range/Units 13:37 13:37 13:37 Lymphocytes # 0.7 L (1.0-4.8) k/uL Chloride 111 H (98-107) mmol/L Glucose 114 H (74-99) mg/dL ALT 39 H (4-34) U/L TSH <0.015 L (0.465-4.680) mIU/L Free T4 (0.78-2.19) ng/dL Free T3 pg/mL 9.5 H (2.8-5.3) pg/ml Urine Ketones 1+ H (Negative) 02/27/22 Range/Units 13:37 Lymphocytes # (1.0-4.8) k/uL Chloride (98-107) mmol/L Glucose (74-99) mg/dL ALT (4-34) U/L TSH (0.465-4.680) mIU/L Free T4 3.12 H (0.78-2.19) ng/dL Free T3 pg/mL (2.8-5.3) pg/ml Urine Ketones (Negative) Assessment and Plan Plan: Hyperthyroidism Most likely secondary to Graves' disease, check anti-thyroid peroxidase antibodies IV fluids Start propranolol 60 mg 3 times daily We'll initiate methimazole once her adrenergic symptoms are controlled. DVT prophylaxis Low risk ambulatory Admit to observation
[2022-02-28] MEDS: SODIUM CHLORIDE 0.9% 1,000 ML IV SCH ×2 (08:23→13:46)
[2022-02-28] MEDS: PROPRANOLOL 20 MG TAB PO SCH ×3 (08:47→21:12)
--- NOTE | 2022-02-28 10:12 | P.PN ---
Subjective Progress Note Date: 02/28/22 Principal diagnosis: hyperthyroidism Patient is still feeling anxious and worried about her disease. States that she is still having diarrhea, nausea, vomiting and abdominal pain. She is also feeling flushed. She told the nurses morning that her urine color was blue. Objective - Vital Signs Vital signs: Vital Signs Temp 98.8 F 02/28/22 07:00 Pulse 90 02/28/22 07:00 Resp 14 02/28/22 07:00 BP 108/60 02/28/22 07:00 Pulse Ox 96 02/28/22 07:00 FiO2 Intake & Output 02/27/22 02/28/22 02/28/22 18:59 06:59 18:59 Intake Total 118 Balance 118 Weight 56.699 kg Intake: Oral 118 Other: # Voids 2 - Exam Constitutional: No acute distress, conversant, pleasant Eyes:Anicteric sclerae, moist conjunctiva, no lid-lag, PERRLA, ENMT: Oropharynx clear, no erythema, exudates Neck: Supple, FROM, no masses, or JVD, No carotid bruits, No thyromegaly Lungs: Clear to auscultation, Clear to percussion, Normal respiratory effort, no accessory muscle use Cardiovascular: Heart regular in rate and rhythm, No murmurs, gallops, or rubs, No peripheral edema Abdominal: Soft, Nontender, no guarding, rebound or rigidity, Normoactive bowel sounds, No hepatomegaly, No splenomegaly, No palpable mass Skin: Normal temperature, tone, texture, turgor, no induration, No subcutaneous nodules, No rash, lesions, No ulcers Extremities: No digital cyanosis, No clubbing, Pedal pulses intact and symmetrical, Radial pulses intact and symmetrical, No calf tenderness Psychiatric: Alert and oriented to person, place and time, appropriate affect, intact judgement Neuro: Muscles Strength 5/5 in all 4 extremities, Sensation to light touch grossly present throughout, Cranial nerves II-XII grossly intact, no focal sensory deficits - Labs CBC & Chem 7: 02/27/22 13:37 02/27/22 13:37 Labs: Abnormal Lab Results - Last 24 Hours (Table) 02/27/22 02/27/22 02/27/22 Range/Units 13:37 13:37 13:37 Lymphocytes # 0.7 L (1.0-4.8) k/uL Chloride 111 H (98-107) mmol/L Glucose 114 H (74-99) mg/dL ALT 39 H (4-34) U/L TSH <0.015 L (0.465-4.680) mIU/L Free T4 (0.78-2.19) ng/dL Free T3 pg/mL 9.5 H (2.8-5.3) pg/ml Urine Ketones 1+ H (Negative) Thyroid Peroxidase Ab (0.0-33.0) U/mL 02/27/22 02/27/22 Range/Units 13:37 13:37 Lymphocytes # (1.0-4.8) k/uL Chloride (98-107) mmol/L Glucose (74-99) mg/dL ALT (4-34) U/L TSH (0.465-4.680) mIU/L Free T4 3.12 H (0.78-2.19) ng/dL Free T3 pg/mL (2.8-5.3) pg/ml Urine Ketones (Negative) Thyroid Peroxidase Ab 343.0 H (0.0-33.0) U/mL Assessment and Plan Plan: Hyperthyroidism Most likely secondary to Graves' disease, has elevated thyroid peroxidase a ntibodies IV fluids Continue propranolol 60 mg 3 times daily Benzodiazepine for anxiety Initiate methimazole 5 mg 3 times a day. DVT prophylaxis Low risk ambulatory Patient will need to follow up with endocrinology after discharge.
[2022-02-28] MEDS: LORazepam 2 MG/ML INJ IV PRN ×2 (12:04→21:53)
[2022-02-28] MEDS: methIMAzole 5 MG TAB PO SCH ×2 (17:24→21:12)
[2022-03-01] MEDS: SODIUM CHLORIDE 0.9% 1,000 ML IV SCH (03:26)
[2022-03-01] MEDS ORDERED: ZOLPIDEM 5 MG TAB PO PRN (04:24)
[2022-03-01 08:19] VITALS: BP 120/74; PULSE 64; RESP 15; TEMP 98
[2022-03-01] MEDS: PROPRANOLOL 20 MG TAB PO SCH (09:14)
[2022-03-01] MEDS: methIMAzole 5 MG TAB PO SCH (09:14)
[2022-03-01] MEDS: LORazepam 2 MG/ML INJ IV PRN (09:28)
--- NOTE | 2022-03-01 11:28 | P.DS ---
Providers Date of admission: 02/27/22 18:27 Expected date of discharge: 03/01/22 Attending physician: Pedro Bryant MD Primary care physician: Evelina Howell [facility] Course: 21-year-old female with a PMH of Graves' disease with poor follow-up who presents to the emergency room with recurrent symptoms of flushing, palpitations, nausea and vomiting, bilateral hands cramps and tingling, diarrhea, fevers. She was recently started on propylthiouracil by her PCP last Thursday after which she started having these symptoms. She has lost follow up over the past 2 years due to personal reasons, used to be on therapy for hyperthyroidism prior to that. Shortly after taking the first dose, the patient developed tachycardia and flushing and was subsequently seen at the emergency room. She was admitted to observation, stablizied and sent home. She came back today for worsening symptoms of anxiety, palpitations, chest tightness and sob, fevers, tremors, nausea, vomiting and diarrhea, flushing and cramps in the hands. Had 6 BMs this am, not diarrhea according to her. Patient was admitted to observation, she was started on propranolol to relieve her symptoms. In addition she was started on benzodiazepines as needed for anxiety as well as methimazole. Symptoms did improve. Patient was given phone number for claims adjuster in [facility] to call and make an appointment. She'll be prescribed propranolol as well as methimazole upon discharge. She is currently doing well, will be discharged home in stable condition. Patient Condition at Discharge: Good Plan - Discharge Summary New Discharge Prescriptions: New Propranolol [Inderal] 60 mg PO TID 30 Days #90 tab methIMAzole [Tapazole] 5 mg PO TID 30 Days #90 tab Discontinued methIMAzole [Tapazole] 15 mg PO BID 7 Days #14 tablet Discharge Medication List Propranolol [Inderal] 60 mg PO TID 30 Days #90 tab 03/01/22 [Rx] methIMAzole [Tapazole] 5 mg PO TID 30 Days #90 tab 03/01/22 [Rx] Follow up Appointment(s)/Referral(s): Renee Irizarry MD [STAFF PHYSICIAN] - 1 Week (Please follow up with Endocrinology.) Evelina Howell DO [Primary Care Provider] - 1-2 days Discharge Disposition: HOME SELF-CARE
== END 2022-03-01 11:20 | disposition home or self-care (01) ==
LOC: EC 13:21 → 6NMEDSUR 18:27
PROVIDERS: ADMIT Internal Medicine; ATTEND Internal Medicine
DX: E05.90 Thyrotoxicosis, unspecified without thyrotoxic crisis or storm (principal); R19.7 Diarrhea, unspecified; R11.2 Nausea with vomiting, unspecified; R10.30 Lower abdominal pain, unspecified; R25.2 Cramp and spasm; R20.0 Anesthesia of skin; R20.2 Paresthesia of skin; R07.89 Other chest pain; F41.9 Anxiety disorder, unspecified; F31.9 Bipolar disorder, unspecified; N83.209 Unspecified ovarian cyst, unspecified side; F17.200 Nicotine dependence, unspecified, uncomplicated; Z82.49 Family history of ischemic heart disease and other diseases of the circulatory system; Z87.42 Personal history of other diseases of the female genital tract; Z79.899 Other long term (current) drug therapy; Z88.6 Allergy status to analgesic agent; Z88.8 Allergy status to other drugs, medicaments and biological substances
CPT/HCPCS: 96376 ×3; 96375 ×2; 96361; 96374; 99285; 36415; 84439; 84481; 80053; 84443; 82150; 83690; 83735; 85025; 81003; 81025; 86376; 93975; 76830; 74177; G0378 ×3; J2060 ×2; J2405; J2270; Q9967

== ENCOUNTER 2022-03-18 05:27 | Emergency (ER) | payer OTHER ==
[2022-03-18 05:40] VITALS: TEMP 98.5
--- NOTE | 2022-03-18 05:48 | ED ---
General Adult HPI - General Chief complaint: Syncope Stated complaint: Weakness Time Seen by Provider: 03/18/22 05:42 Source: family Mode of arrival: wheelchair Limitations: no limitations - History of Present Illness Initial comments: Dictation was produced using [employer] dictation software. please excuse any grammatical, word or spelling errors. Chief Complaint: 21-year-old female past medical history of thyrotoxicosis presents to the emergency department for episode of presyncope History of Present Illness: 21-year-old female presents emergency department for episode of presyncope. Patient was in the hospital when all the sudden she felt slightly faint. Patient states that she felt like she couldn't move for several seconds. Patient has a history of thyroid disease. She was recently admitted to the hospital for thyrotoxicosis. Patient has no history of cardiac disease. Patient has been taking her medications as prescribed. After that brief episode patient feels like she is back to baseline. The ROS documented in this emergency department record has been reviewed and confirmed by me. Those systems with pertinent positive or negative responses have been documented in the HPI. All other systems are other negative and/or noncontributory. PHYSICAL EXAM: General Impression: Alert and oriented x3, not in acute distress HEENT: Normocephalic atraumatic, extra-ocular movements intact, pupils equal and reactive to light bilaterally, mucous membranes moist. Cardiovascular: Heart regular rate and rhythm Chest: Able to complete full sentences, no retractions, no tachypnea Abdomen: abdomen soft, non-tender, non-distended, no organomegaly Musculoskeletal: Pulses present and equal in all extremities, no peripheral edema Motor: no focal deficits noted Neurological: CN II-XII grossly intact, no focal motor or sensory deficits noted Skin: Intact with no visualized rashes Psych: Normal affect and mood ED course: 21-year-old female presents emergency Department with episode of presyncope. She has history of thyroid disease for which she takes medications to treat thyrotoxicosis. Vital signs upon arrival are within acceptable limits. Nursing notes and chart review was performed My EKG interpretation: Ventricular rate 57, sinus bradycardia, SC interval 245, QRS 77, QTC 4:15. No SC prolongation, no QTC prolongation, no ST or T-wave changes noted. EKG compared to 02/28/2022 showing no changes. Overall, this EKG is unremarkable Laboratory evaluation obtained. CBC unremarkable. Metabolic panel is negative. Thyroid labs within acceptable limits. Urine hCG is negative. Patient o bserved in emergency department for 130 minutes. No high-risk features. Patient will be discharged. - Related Data Previous Rx's Medication Instructions Recorded Propranolol [Inderal] 60 mg PO TID 30 Days #90 tab 03/01/22 methIMAzole [Tapazole] 5 mg PO TID 30 Days #90 tab 03/01/22 Allergies Allergy/AdvReac Type Severity Reaction Status Date / Time diazepam [From Valium] Allergy Unknown Verified 03/18/22 05:40 ketorolac [From Toradol] Allergy Anaphylaxis Verified 03/18/22 05:40 Review of Systems ROS Statement: Those systems with pertinent positive or pertinent negative responses have been documented in the HPI. ROS Other: All systems not noted in ROS Statement are negative. Past Medical History Past Medical History: Thyroid Disorder Additional Past Medical History / Comment(s): Graves disease History of Any Multi-Drug Resistant Organisms: None Reported Past Surgical History: No Surgical Hx Reported Past Psychological History: Anxiety, Bipolar, Depression Smoking Status: Former smoker Past Alcohol Use History: Occasional Past Drug Use History: Marijuana - Past Family History Father Family Medical History: Hypertension General Exam Limitations: no limitations Course Vital Signs 03/18/22 05:38 Temperature 98.5 F Pulse Rate 55 L Respiratory 18 Rate Blood Pressure 104/74 O2 Sat by Pulse 100 Oximetry Medical Decision Making - Lab Data Result diagrams: 03/18/22 06:01 03/18/22 06:01 Lab Results 03/18/22 03/18/22 03/18/22 Range/Units 05:55 06:01 06:01 WBC 4.9 (3.8-10.6) k/uL RBC 4.44 (3.80-5.40) m/uL Hgb 13.5 (11.4-16.0) gm/dL Hct 38.4 (34.0-46.0) % MCV 86.6 (80.0-100.0) fL MCH 30.4 (25.0-35.0) pg MCHC 35.1 (31.0-37.0) g/dL RDW 13.7 (11.5-15.5) % Plt Count 263 (150-450) k/uL MPV 7.8 Neutrophils % 36 % Lymphocytes % 51 % Monocytes % 5 % Eosinophils % 5 % Basophils % 0 % Neutrophils # 1.8 (1.3-7.7) k/uL Lymphocytes # 2.5 (1.0-4.8) k/uL Monocytes # 0.3 (0-1.0) k/uL Eosinophils # 0.3 (0-0.7) k/uL Basophils # 0.0 (0-0.2) k/uL Sodium 140 (137-145) mmol/L Potassium 4.1 (3.5-5.1) mmol/L Chloride 109 H (98-107) mmol/L Carbon Dioxide 25 (22-30) mmol/L Anion Gap 6 mmol/L BUN 8 (7-17) mg/dL Creatinine 0.61 (0.52-1.04) mg/dL Est GFR (CKD-EPI)AfAm >90 (>60 ml/min/1.73 sqM) Est GFR (CKD-EPI)NonAf >90 (>60 ml/min/1.73 sqM) Glucose 96 (74-99) mg/dL Calcium 8.7 (8.4-10.2) mg/dL TSH <0.015 L (0.465-4.680) mIU/L Free T4 1.58 (0.78-2.19) ng/dL Urine HCG, Qual Not Detected (Not Detectd) Disposition Clinical Impression: Pre-syncope Disposition: HOME SELF-CARE Condition: Good Instructions (If sedation given, give patient instructions): Near Syncope (ED) Is patient prescribed a controlled substance at d/c from ED?: No Referrals: Evelina Howell DO [Primary Care Provider] - 1-2 days Time of Disposition: 06:55
[2022-03-18 06:09] LABS: Basophils % (A) 0 %; Eosinophils # (A) 0.3 k/uL (0-0.7); Eosinophils % (A) 5 %; HCT 38.4 % (34.0-46.0); HGB 13.5 gm/dL (11.4-16.0); Lymphocytes # (A) 2.5 k/uL (1.0-4.8); Lymphocytes % (A) 51 %; MCH 30.4 pg (25.0-35.0); MCHC 35.1 g/dL (31.0-37.0); MCV 86.6 fL (80.0-100.0); Mean Platelet Volume 7.8; Monocytes # (A) 0.3 k/uL (0-1.0); Monocytes % (A) 5 %; Neutrophils # (A) 1.8 k/uL (1.3-7.7); Neutrophils % (A) 36 %; Platelet Count 263 k/uL (150-450); RBC 4.44 m/uL (3.80-5.40); RDW 13.7 % (11.5-15.5); WBC 4.9 k/uL (3.8-10.6)
[2022-03-18 06:18] LABS: African American GFR (CKD) >90 (>60 ml/min/1.73 sqM); Anion Gap 6 mmol/L; Blood Urea Nitrogen 8 mg/dL (7-17); Calcium 8.7 mg/dL (8.4-10.2); Carbon Dioxide 25 mmol/L (22-30); Chloride 109 mmol/L (98-107); Glucose 96 mg/dL (74-99); Non-African American GFR(CKD) >90 (>60 ml/min/1.73 sqM); Potassium 4.1 mmol/L (3.5-5.1); Sodium 140 mmol/L (137-145)
[2022-03-18 06:35] LABS: T4, Free (Free Thyroxine) 1.58 ng/dL (0.78-2.19)
[2022-03-18 07:03] VITALS: BP 100/63; PULSE 61; RESP 15
== END 2022-03-18 07:02 | disposition home or self-care (01) ==
LOC: EC 05:27
DX: R55 Syncope and collapse (principal); F41.9 Anxiety disorder, unspecified; F31.9 Bipolar disorder, unspecified; Z87.891 Personal history of nicotine dependence; F12.90 Cannabis use, unspecified, uncomplicated; Z88.8 Allergy status to other drugs, medicaments and biological substances; Z88.6 Allergy status to analgesic agent
CPT/HCPCS: 36415; 80048; 81025; 84439; 84443; 84481; 85025; 93005; 99285

== ENCOUNTER → 2022-06-25 | Outpatient (CLI) | payer OTHER ==
[2022-06-26 00:05] LABS: T4, Free (Free Thyroxine) 0.66 ng/dL (0.800-1.800)
== END | disposition home or self-care (01) ==
LOC: LABWHC1 14:54
PROVIDERS: ATTEND Internal Medicine Endocrinology, Diabetes & Metabolism
DX: E05.00 Thyrotoxicosis with diffuse goiter without thyrotoxic crisis or storm (principal)
CPT/HCPCS: 36415; 84439; 84443; 84480

== ENCOUNTER → 2022-08-05 | Outpatient (CLI) | payer OTHER ==
[2022-08-06 02:14] LABS: HGB 13.5 g/dL (12.0-15.0); MCH 31.5 pg (27.0-32.0); MCHC 32.1 g/dL (32.0-37.0); MCV 98.1 fL (80.0-97.0); Mean Platelet Volume 10.1 fL (9.5-12.2); NRBC Per 100 WBC 0 /100 WBCS (0.0-0.0); Platelet Count 292 X 10*3/uL (140-440); RBC 4.28 X 10*6/uL (4.10-5.20); RDW 13.2 % (11.5-14.5); WBC 5.54 X 10*3/uL (4.50-10.00)
[2022-08-06 02:55] LABS: African American GFR (CKD) 108.2 (60.0-200.0); Albumin 4.5 g/dL (3.8-4.9); Albumin/Globulin Ratio 1.55 (1.60-3.17); Anion Gap 12.7 mmol/L (10.00-18.00); BUN/Creat Ratio 10.23 Ratio (12.00-20.00); Blood Urea Nitrogen 8.9 mg/dL (9.0-27.0); Calcium 9.5 mg/dL (8.7-10.3); Carbon Dioxide 22.7 mmol/L (20.0-27.5); Globulin 2.9 g/dL (1.6-3.3); Non-African American GFR(CKD) 93.4 (60.0-200.0); Potassium 4.3 mmol/L (3.5-5.5); T4, Free (Free Thyroxine) 0.65 ng/dL (0.800-1.800); Total Bilirubin 0.4 mg/dL (0.30-1.20); Total Protein 7.4 g/dL (6.2-8.2)
== END | disposition home or self-care (01) ==
LOC: LABWHC1 11:44
PROVIDERS: ATTEND Internal Medicine Endocrinology, Diabetes & Metabolism
DX: E05.00 Thyrotoxicosis with diffuse goiter without thyrotoxic crisis or storm (principal)
CPT/HCPCS: 36415; 80053; 84439; 84443; 84480; 85027

== ENCOUNTER → 2022-08-07 | Outpatient (CLI) | payer OTHER ==
--- NOTE | 2022-08-07 10:04 | USB ---
Reason for Exam: Clinical finding. Technique: Method: Whole Breast Handheld. Findings: The whole breast of the right breast, the axilla of the right breast and the retroareolar of the right breast were scanned. A complete US of all four quadrants of the breast and retro-areolar region were reviewed. No solid or cystic masses are identified on images saved with particular attention to the 8 o'clock position an area of clinical concern. No suspicious fluid collection is seen. Incidental few prominent but benign-appearing right axillary lymph nodes marked towards end of study. Overall Assessment: Negative, BI-RAD 1 Management: Screening Mammogram of both breasts at age 39. Managed clinically palpable abnormality right breast. Return earlier for further imaging if palpable is felt to enlarge . Results were given to the patient verbally at the time of exam. Electronically signed and approved by: Young Gore M.D.
== END | disposition home or self-care (01) ==
LOC: RADUSWWP 09:32
PROVIDERS: ATTEND Family Medicine
DX: N63.10 Unspecified lump in the right breast, unspecified quadrant (principal); N64.4 Mastodynia

== ENCOUNTER 2023-02-23 16:28 | Emergency (ER) | payer BC, OTHER ==
[2023-02-23 16:41] VITALS: RESP 18
[2023-02-23 17:37] LABS: Basophils % (A) 0 %; Eosinophils % (A) 0 %; HCT 40.3 % (34.0-46.0); Lymphocytes # (A) 1.6 k/uL (1.0-4.8); Lymphocytes % (A) 23 %; MCH 31.6 pg (25.0-35.0); MCHC 34.7 g/dL (31.0-37.0); MCV 91.1 fL (80.0-100.0); Mean Platelet Volume 7.9; Monocytes # (A) 0.2 k/uL (0-1.0); Monocytes % (A) 3 %; Neutrophils # (A) 5.1 k/uL (1.3-7.7); Neutrophils % (A) 71 %; Platelet Count 286 k/uL (150-450); RBC 4.42 m/uL (3.80-5.40); RDW 13.1 % (11.5-15.5); WBC 7.1 k/uL (3.8-10.6)
[2023-02-23 17:46] LABS: ALT 17 U/L (4-34); AST 24 U/L (14-36); African American GFR (CKD) >90 (>60 ml/min/1.73 sqM); Albumin 4.6 g/dL (3.5-5.0); Alkaline Phosphatase 70 U/L (38-126); Anion Gap 10 mmol/L; Blood Urea Nitrogen 9 mg/dL (7-17); Calcium 9.7 mg/dL (8.4-10.2); Carbon Dioxide 24 mmol/L (22-30); Chloride 104 mmol/L (98-107); Glucose 91 mg/dL (74-99); Magnesium 1.9 mg/dL (1.6-2.3); Non-African American GFR(CKD) >90 (>60 ml/min/1.73 sqM); Potassium 3.8 mmol/L (3.5-5.1); Sodium 138 mmol/L (137-145); Total Bilirubin 0.6 mg/dL (0.2-1.3); Total Protein 8.2 g/dL (6.3-8.2)
--- NOTE | 2023-02-23 17:53 | XR ---
EXAMINATION TYPE: XR chest 2V DATE OF EXAM: 02/23/2023 5:31 PM CLINICAL INDICATION:Female, 22 years old with history of Difficulty breathing ; [facility] COMPARISON: Chest radiographs from 02/25/2022 TECHNIQUE: XR chest 2V Frontal and lateral views of the chest. FINDINGS: Lungs/Pleura: There is no evidence of pleural effusion, focal consolidation, or pneumothorax. Pulmonary vascularity: Unremarkable. Heart/mediastinum: Cardiomediastinal silhouette is unremarkable. Musculoskeletal: No acute osseous pathology. IMPRESSION: No acute cardiopulmonary disease/process.
--- NOTE | 2023-02-23 18:43 | ED ---
General Adult HPI - General Chief complaint: Chest Pain Stated complaint: Chest Pain,sob Time Seen by Provider: 02/23/23 16:40 Source: patient, RN notes reviewed, old records reviewed Mode of arrival: ambulatory Limitations: no limitations - History of Present Illness Initial comments: This is a 22-year-old female presents to the emergency department stating that she went to her doctor's office today get some blood work done and on the way home she started getting some tightness in her left arm and up into her chest and then she started experiencing some chest pain with deep breathing. Patient denies any substernal chest pain to myself she says it was right up in the shoulder area and it was worse with deep breathing. Patient denies any fever chills or cough per patient denies abdominal pain patient denies nausea vomiting or diarrhea per patient denies headache patient denies numbness weakness. Patient states she has a history of anxiety and prior to coming she did take one of her anxiety pills and she is feeling better at this time. Patient denies any history of shortness of breath. - Related Data Previous Rx's Medication Instructions Recorded Propranolol [Inderal] 60 mg PO TID 30 Days #90 tab 03/01/22 methIMAzole [Tapazole] 5 mg PO TID 30 Days #90 tab 03/01/22 Allergies Allergy/AdvReac Type Severity Reaction Status Date / Time diazepam [From Valium] Allergy Unknown Verified 02/23/23 16:31 ketorolac [From Toradol] Allergy Anaphylaxis Verified 02/23/23 16:31 Review of Systems ROS Statement: Those systems with pertinent positive or pertinent negative responses have been documented in the HPI. ROS Other: All systems not noted in ROS Statement are negative. Past Medical History Past Medical History: Thyroid Disorder Additional Past Medical History / Comment(s): Graves disease History of Any Multi-Drug Resistant Organisms: None Reported Past Surgical History: No Surgical Hx Reported Additional Past Surgical History / Comment(s): laproscopic endometreosis. Past Psychological History: Anxiety, Bipolar, Depression Smoking Status: Vaper Past Alcohol Use History: Occasional Past Drug Use History: Marijuana - Past Family History Father Family Medical History: Hypertension General Exam - General Exam Comments Initial Comments: GENERAL: Patient is well-developed and well-nourished. Patient is nontoxic and well- hydrated and is in mild distress. ENT: Neck is soft and supple. No significant lymphadenopathy is noted. Oropharynx is clear. Moist mucous membranes. Neck has full range of motion without eliciting any pain. EYES: The sclera were anicteric and conjunctiva were pink and moist. Extraocular movements were intact and pupils were equal round and reactive to light. Eyelids were unremarkable. PULMONARY: Unlabored respirations. Good breath sounds bilaterally. No audible rales rho nchi or wheezing was noted. CARDIOVASCULAR: There is a regular rate and rhythm without any murmurs gallops or rubs. ABDOMEN: Soft and nontender with normal bowel sounds. SKIN: Skin is clear with no lesions or rashes and otherwise unremarkable. NEUROLOGIC: Patient is alert and oriented x3. Cranial nerves II through XII are grossly intact. Motor and sensory are also intact. Normal speech, volume and content. Symmetrical smile. MUSCULOSKELETAL: Normal extremities with adequate strength and full range of motion. LYMPHATICS: No significant lymphadenopathy is noted PSYCHIATRIC: Normal psychiatric evaluation. Limitations: no limitations Course Vital Signs 02/23/23 02/23/23 02/23/23 16:29 17:08 17:13 Temperature 98.3 F Pulse Rate 62 71 Pulse Rate [ 77 Print Line Operator ] Respiratory 18 18 Rate Blood Pressure 127/90 104/70 O2 Sat by Pulse 100 96 Oximetry 02/23/23 18:59 Temperature Pulse Rate 58 L Pulse Rate [ Print Line Operator ] Respiratory 18 Rate Blood Pressure 104/72 O2 Sat by Pulse 97 Oximetry Medical Decision Making - Medical Decision Making EKG is interpreted by myself. EKG shows sinus rhythm at 74 bpm OH interval 281 QRSs 113 QT interval 371 QTC is 398. Patient's EKG shows no ST segment elevation or depression. Was pt. sent in by a medical professional or institution (, PA, FISH HOUSEKEEPER, urgent care, hospital, or halfway...) When possible be specific @ -No Did you speak to anyone other than the patient for history (EMS, parent, family, police, friend...)? What history was obtained from this source @ -No Did you review nursing and triage notes (agree or disagree)? Why? @ -I reviewed and agree with nursing and triage notes Were old charts reviewed (outside hosp., previous admission, EMS record, old EKG, old radiological studies, urgent care reports/EKG's, halfway records)? Report findings @ -No old charts were reviewed Differential Diagnosis (chest pain, altered mental status, abdominal pain women, abdominal pain men, vaginal bleeding, weakness, fever, dyspnea, syncope, headac he, dizziness, GI bleed, back pain, seizure, CVA, palpatations, mental health, musculoskeletal)? @ -Differential Chest Pain: Stable Angina, Unstable Angina, STEMI, NSTEMI Aortic Dissection, Pneumothorax, Musculoskeletal, Esophageal Spasm GERD, Cholecystitis, Pancreatitis, Zoster, this is not meant to be an all-inclusive list. EKG interpreted by me (3pts min.). @ -As above X-rays interpreted by me (1pt min.). @ -Chest x-ray shows no acute abnormality CT interpreted by me (1pt min.). @ -None done U/S interpreted by me (1pt. min.). @ -None done What testing was considered but not performed or refused? (CT, X-rays, U/S, labs)? Why? @ -None What meds were considered but not given or refused? Why? @ -None Did you discuss the management of the patient with other professionals (professionals i.e. , PA, FISH HOUSEKEEPER, lab, RT, psych nurse, social media senior associate, foam rubber fabricator, teacher, chief lifestyle officer, rn case mgr)? Give summary @ -No Was smoking cessation discussed for >3mins.? @ -No Was critical care preformed (if so, how long)? @ -No Were there social determinants of health that impacted care today? How? (Homele ssness, low income, unemployed, alcoholism, drug addiction, transportation, low edu. Level, literacy, decrease access to med. care, assisted, rehab)? @ -No Was there de-escalation of care discussed even if they declined (Discuss DNR or withdrawal of care, Hospice)? DNR status @ -No What co-morbidities impacted this encounter? (DM, HTN, Smoking, COPD, CAD, Cancer, CVA, ARF, Chemo, Hep., AIDS, mental health diagnosis, sleep apnea, morbid obesity)? @ -None Was patient admitted / discharged? Hospital course, mention meds given and route, prescriptions, significant lab abnormalities, going to OR and other pertinent info. @ -Went back in the room on multiple occasions to reevaluate the patient she no longer has any discomfort or shortness of breath. Patient had lab work done and all the lab work came back normal even the troponin and d-dimer. Patient had a chest x-ray showed no acute abnormality. I the patient but all the results she was willing: Follow-up as needed or return to the emergency department if any symptoms returned or if she had worsening symptoms Undiagnosed new problem with uncertain prognosis? @ -No Drug Therapy requiring intensive monitoring for toxicity (Heparin, Nitro, Insulin, Cardizem)? @ -No Were any procedures done? @ -No Diagnosis/symptom? @ -Arm pain Acute, or Chronic, or Acute on Chronic? @ -Acute Uncomplicated (without systemic symptoms) or Complicated (systemic symptoms)? @ -Complicated Side effects of treatment? @ -No Exacerbation, Progression, or Severe Exacerbation? @ -No Poses a threat to life or bodily function? How? (Chest pain, [place], [place], pneumonia, PE, COPD, DKA, ARF, appy, cholecystitis, CVA, Diverticulitis, Homicidal, Suicidal, threat to staff... and all critical care pts) @ -No Diagnosis/symptom? @ -Anxiety Acute, or Chronic, or Acute on Chronic? @ -Acute Uncomplicated (without systemic symptoms) or Complicated (systemic symptoms)? @ -Uncomplicated Side effects of treatment? @ -none Exacerbation, Progression, or Severe Exacerbation] @ -no Poses a threat to life or bodily function? @ -no - Lab Data Result diagrams: 02/23/23 17:11 02/23/23 17:11 Lab Results 02/23/23 02/23/23 02/23/23 Range/Units 17:11 17:11 17:11 WBC 7.1 (3.8-10.6) k/uL RBC 4.42 (3.80-5.40) m/uL Hgb 14.0 (11.4-16.0) gm/dL Hct 40.3 (34.0-46.0) % MCV 91.1 (80.0-100.0) fL MCH 31.6 (25.0-35.0) pg MCHC 34.7 (31.0-37.0) g/dL RDW 13.1 (11.5-15.5) % Plt Count 286 (150-450) k/uL MPV 7.9 Neutrophils % 71 % Lymphocytes % 23 % Monocytes % 3 % Eosinophils % 0 % Basophils % 0 % Neutrophils # 5.1 (1.3-7.7) k/uL Lymphocytes # 1.6 (1.0-4.8) k/uL Monocytes # 0.2 (0-1.0) k/uL Eosinophils # 0.0 (0-0.7) k/uL Basophils # 0.0 (0-0.2) k/uL D-Dimer 0.27 (<0.60) mg/L FEU Sodium 138 (137-145) mmol/L Potassium 3.8 (3.5-5.1) mmol/L Chloride 104 (98-107) mmol/L Carbon Dioxide 24 (22-30) mmol/L Anion Gap 10 mmol/L BUN 9 (7-17) mg/dL Creatinine 0.77 (0.52-1.04) mg/dL Est GFR (CKD-EPI)AfAm >90 (>60 ml/min/1.73 sqM) Est GFR (CKD-EPI)NonAf >90 (>60 ml/min/1.73 sqM) Glucose 91 (74-99) mg/dL Calcium 9.7 (8.4-10.2) mg/dL Magnesium 1.9 (1.6-2.3) mg/dL Total Bilirubin 0.6 (0.2-1.3) mg/dL AST 24 (14-36) U/L ALT 17 (4-34) U/L Alkaline Phosphatase 70 (38-126) U/L Troponin I (0.000-0.034) ng/mL Total Protein 8.2 (6.3-8.2) g/dL Albumin 4.6 (3.5-5.0) g/dL 02/23/23 Range/Units 17:11 WBC (3.8-10.6) k/uL RBC (3.80-5.40) m/uL Hgb (11.4-16.0) gm/dL Hct (34.0-46.0) % MCV (80.0-100.0) fL MCH (25.0-35.0) pg MCHC (31.0-37.0) g/dL RDW (11.5-15.5) % Plt Count (150-450) k/uL MPV Neutrophils % % Lymphocytes % % Monocytes % % Eosinophils % % Basophils % % Neutrophils # (1.3-7.7) k/uL Lymphocytes # (1.0-4.8) k/uL Monocytes # (0-1.0) k/uL Eosinophils # (0-0.7) k/uL Basophils # (0-0.2) k/uL D-Dimer (<0.60) mg/L FEU Sodium (137-145) mmol/L Potassium (3.5-5.1) mmol/L Chloride (98-107) mmol/L Carbon Dioxide (22-30) mmol/L Anion Gap mmol/L BUN (7-17) mg/dL Creatinine (0.52-1.04) mg/dL Est GFR (CKD-EPI)AfAm (>60 ml/min/1.73 sqM) Est GFR (CKD-EPI)NonAf (>60 ml/min/1.73 sqM) Glucose (74-99) mg/dL Calcium (8.4-10.2) mg/dL Magnesium (1.6-2.3) mg/dL Total Bilirubin (0.2-1.3) mg/dL AST (14-36) U/L ALT (4-34) U/L Alkaline Phosphatase (38-126) U/L Troponin I <0.012 (0.000-0.034) ng/mL Total Protein (6.3-8.2) g/dL Albumin (3.5-5.0) g/dL Disposition Clinical Impression: Arm pain, Anxiety Disposition: HOME SELF-CARE Instructions (If sedation given, give patient instructions): Anxiety (ED) Is patient prescribed a controlled substance at d/c from ED?: No Referrals: Evelina Howell DO [Primary Care Provider] - 1-2 days Time of Disposition: 19:55
[2023-02-23 20:29] VITALS: BP 104/70; PULSE 68; TEMP 98
== END 2023-02-23 20:06 | disposition home or self-care (01) ==
LOC: EC 16:28
DX: M79.602 Pain in left arm (principal); F41.9 Anxiety disorder, unspecified; I45.10 Unspecified right bundle-branch block; F17.290 Nicotine dependence, other tobacco product, uncomplicated; F12.90 Cannabis use, unspecified, uncomplicated; Z88.8 Allergy status to other drugs, medicaments and biological substances; Z88.6 Allergy status to analgesic agent; Z86.59 Personal history of other mental and behavioral disorders
CPT/HCPCS: 36415; 71046; 80053; 83735; 84484; 85025; 85379; 93005; 99285